=== PATIENT | female | born 1990 | race Caucasian/White ===

== ENCOUNTER 2018-07-13 17:16 | Inpatient (IN) | payer OTHER ==
[~2018-07-13] VITALS: Ht 160 cm; Wt 73.2 kg
[2018-07-13 17:15] VITALS: BP 135/85
[2018-07-13] MEDS: LACTATED RINGERS 1,000 ML IV SCH (18:07)
[2018-07-13] MEDS ORDERED: BETAMETHASONE 6 MG/ML, 5ML IM ONE (18:43)
[2018-07-13] MEDS: BETAMETHASONE 6 MG/ML, 5ML IM SCH (18:56)
[2018-07-14] MEDS: LACTATED RINGERS 1,000 ML IV SCH (01:10)
[2018-07-14] MEDS ORDERED: BETAMETHASONE 6 MG/ML, 5ML IM ONE (18:21)
[2018-07-14] MEDS: BETAMETHASONE 6 MG/ML, 5ML IM SCH (18:27)
[2018-07-14] MEDS ORDERED: ACETAMINOPHEN 325 MG TABLET ONE (18:54)
[2018-07-14] MEDS ORDERED: LACTATED RINGERS 1,000 ML IV PRN (18:57)
[2018-07-14] MEDS: MAGNESIUM SULF. PMX 20GM/500ML 500 ML IV SCH (18:57)
[2018-07-14] MEDS ORDERED: MAGNESIUM SULF. PMX 20GM/500ML 500 ML IV ONE (18:59)
[2018-07-14] MEDS ORDERED: MAGNESIUM SULFATE PMX 4GM/100M 100 ML IVPB ONE (19:30)
[2018-07-14 19:32] LABS: BASOPHILS % (AUTO) 0 % (0-1); EOSINOPHILS # (AUTO) 0.01 x10^3/uL (0-0.4); EOSINOPHILS % (AUTO) 0 % (1-7); LYMPHOCYTES # (AUTO) 1.31 x10^3/uL (1-3.4); LYMPHOCYTES % (AUTO) 9 % (22-44); MD NO; MEAN CORPUSCULAR HEMOGLOBIN 29.5 pg (27.0-34.8); MEAN CORPUSCULAR HGB CONC 33.9 g/dL (32.4-35.8); MEAN CORPUSCULAR VOLUME 86.9 fL (80-100); MEAN PLATELET VOLUME 7.6 fL (7.4-10.4); MONOCYTES # (AUTO) 0.99 x10^3/uL (0.2-0.8); MONOCYTES % (AUTO) 7 % (2-9); NEUTROPHILS % (AUTO) 84 % (42-75); PLATELET COUNT 262 x10^3/uL (130-400); RED BLOOD COUNT 4.14 x10^6/uL (3.82-5.3); RED CELL DISTRIBUTION WIDTH 14.5 % (9.6-15.2)
[2018-07-14 19:38] LABS: ALANINE AMINOTRANSFERASE 27 U/L (12-78); ALBUMIN 2.5 g/dL (3.4-5.0); ANION GAP 11 mmol/L (5-15); CALCIUM 8.7 mg/dL (8.5-10.1); CHLORIDE 108 mmol/L (98-107)
[2018-07-14] MEDS: ACETAMINOPHEN 325 MG TABLET PO PRN (19:40)
[2018-07-14 19:41] LABS: ALKALINE PHOSPHATASE 141 U/L (45-117); BILIRUBIN,TOTAL 0.2 mg/dL (0.2-1.0); TOTAL PROTEIN 6.5 g/dL (6.4-8.2)
[2018-07-14 19:54] VITALS: BP 125/76
[2018-07-15 00:24] LABS: MICROSCOPIC NOT IND
[2018-07-15 00:31] LABS: CULTURE INDICATED? NO
[2018-07-15] MEDS ORDERED: MAGNESIUM SULF. PMX 20GM/500ML 500 ML IV ONE ×2 (03:27→13:41)
[2018-07-15] MEDS: MAGNESIUM SULF. PMX 20GM/500ML 500 ML IV SCH ×2 (03:35→13:57)
[2018-07-15] MEDS ORDERED: ACETAMINOPHEN 325 MG TABLET ONE (12:41)
[2018-07-15] MEDS: ACETAMINOPHEN 325 MG TABLET PO PRN (12:49)
[2018-07-16] MEDS: DOCUSATE 100 MG CAPSULE PO SCH ×2 (09:00→09:41)
[2018-07-16] MEDS: SODIUM CHLORIDE FLUSH 10ML SYR IVF SCH ×2 (09:00→21:18)
[2018-07-16] MEDS ORDERED: DOCUSATE 100 MG CAPSULE PO SCH (09:00)
[2018-07-16] MEDS ORDERED: PRENATAL VIT/IRON/FA 1 EACH TABLET ONE (09:29)
[2018-07-16] MEDS ORDERED: DOCUSATE 100 MG CAPSULE ONE (09:29)
[2018-07-16] MEDS: PRENATAL VIT/IRON/FA 1 EACH TABLET PO SCH (09:30)
[2018-07-16 10:45] VITALS: BP 116/71
[2018-07-16] MEDS ORDERED: ACETAMINOPHEN 325 MG TABLET ONE (19:31)
[2018-07-16] MEDS: ACETAMINOPHEN 325 MG TABLET PO PRN (19:33)
[2018-07-16 19:36] VITALS: BP 119/65
[2018-07-17] MEDS ORDERED: DIPH,PERTUSS(ACELL),TET VAC/PF NC IM-VACC ONE ×2 (08:00→08:30)
[2018-07-17] MEDS ORDERED: DOCUSATE 100 MG CAPSULE ONE ×2 (08:01→21:16)
[2018-07-17] MEDS: DOCUSATE 100 MG CAPSULE PO SCH ×2 (08:49→21:18)
[2018-07-17] MEDS: PRENATAL VIT/IRON/FA 1 EACH TABLET PO SCH (08:49)
[2018-07-17 21:09] VITALS: BP 115/59
[2018-07-17 21:22] VITALS: BP 122/65
== END 2018-07-18 10:03 | disposition home or self-care (01) | DRG 781 ==
LOC: LDOP 17:16 → LDIP 17:34 → OBSVTOIN 07-14 18:59
PROVIDERS: ADMIT Obstetrics & Gynecology Maternal & Fetal Medicine; ATTEND Obstetrics & Gynecology Maternal & Fetal Medicine
DX: O40.3XX0 Polyhydramnios, third trimester, not applicable or unspecified (principal); O26.833 Pregnancy related renal disease, third trimester; O60.03 Preterm labor without delivery, third trimester; O26.873 Cervical shortening, third trimester; N13.30 Unspecified hydronephrosis; I51.0 Cardiac septal defect, acquired; O99.413 Diseases of the circulatory system complicating pregnancy, third trimester; O36.63X0 Maternal care for excessive fetal growth, third trimester, not applicable or unspecified; O76 Abnormality in fetal heart rate and rhythm complicating labor and delivery; Z3A.32 32 weeks gestation of pregnancy; Z90.49 Acquired absence of other specified parts of digestive tract; Z23 Encounter for immunization
CPT/HCPCS: 36415; 80053; 81003; 83735; 85025; 86850; 86900; 90715; G0378; J0702; J3475; J7120